=== PATIENT | male | born 1990 | race Caucasian/White ===

== ENCOUNTER → 2020-08-30 | Outpatient (CLI) | payer OTHER ==
[~2020-08-30] MED LIST: E-Z-GAS II EFFERVESCENT PACKET (SODIUM BICARB./CITRIC ACID/SIMETHICONE) As Ordered ONE; E-Z-HD 98% w/w 340GM SUSP BTL As Ordered ONE; E-Z-PAQUE 96% w/w SUSP 176GM BTL As Ordered ONE; SIME125C PO; [UNRECOGNIZED DRUG - REMARK]
--- NOTE | 2020-08-30 10:16 | REP ---
INDICATION: GOITOR ESOPHAGEAL MOTILITY DISORDER- BARIUM SWALLOW AFTER COMPARISON: None. TECHNIQUE: Velazquez scale and color evaluation of the thyroid gland using the linear high frequency transducer. FINDINGS: The thyroid gland is normal in contour, shape, size, and echogenicity. No nodule/mass or cystic abnormalities are appreciated. Right thyroid lobe measures 5.1 x 1.6 x 1.9 cm. Isthmus measures 3 mm in width. Left thyroid lobe measures 5.0 x 1.5 x 1.2 cm. IMPRESSION: Normal thyroid ultrasound. <Electronically signed by Satya Hernandez > 08/30/20 1012
--- NOTE | 2020-08-30 18:32 | REP ---
INDICATION: GOITER ESOPHAGEAL MOTILITY DISORDER- U/S FIRST. COMPARISON: None. TECHNIQUE: This procedure was performed under the direct supervision of Dr. Velazquez. Images were reviewed with Dr. Velazquez. Liquid barium and gas producing granules were given in the erect position as well as liquid barium in the prone oblique positions in order to perform a double contrast esophagram examination. A combination of fluoroscopy, spot films and last image hold technology was utilized. 0.7 minutes of fluoro time was utilized for this procedure. FINDINGS: A single view PA chest x-ray is submitted as a pmo consultant film. The superior mediastinal structures are midline. The heart size is within normal limits. The lungs are clear. The oral and pharyngeal stages of deglutition are unremarkable. Esophageal transport is prompt and efficient and there is no esophagitis, stricture, mucosal ring, or hiatal hernia.Gastroesophageal reflux is not demonstrated on this examination. IMPRESSION: Essentially unremarkable double-contrast esophagram examination. <Electronically signed by Eduar Skelton > 08/30/20 1636 <Electronically signed by Pato Velazquez > 08/30/20 [id number]
== END ==
LOC: M RAD 09:30
PROVIDERS: ATTEND Specialist
DX: R47.02 Dysphasia (principal)

== ENCOUNTER → 2022-03-27 | Outpatient (CLI) | payer OTHER ==
[~2022-03-27] MED LIST changes: -E-Z-GAS II EFFERVESCENT PACKET (SODIUM BICARB./CITRIC ACID/SIMETHICONE) As Ordered ONE; -E-Z-HD 98% w/w 340GM SUSP BTL As Ordered ONE; -E-Z-PAQUE 96% w/w SUSP 176GM BTL As Ordered ONE
== END ==
LOC: M PLAIMG 08:18
PROVIDERS: ATTEND Otolaryngology
DX: R22.1 Localized swelling, mass and lump, neck (principal)